=== PATIENT | female | born 1955 | race Caucasian/White ===

== ENCOUNTER 2016-07-07 11:38 | Day surgery (SDC) | payer OTHER ==
[~2016-07-07] VITALS: Ht 165.1 cm; Wt 70.7 kg
[2016-07-07] MEDS ORDERED: OMEPRAZOLE (12:28)
[2016-07-07] MEDS ORDERED: BENAZEPRIL (12:28)
[2016-07-07] MEDS ORDERED: AMLODIPINE (12:28)
[2016-07-07] MEDS ORDERED: SIMVASTATIN (12:28)
[2016-07-07 12:32] VITALS: Ht 165.1 cm; Wt 70.7 kg
[2016-07-07 12:46] VITALS: BP 182/79; PULSE 73; RESP 18
[2016-07-07] MEDS ORDERED: FENTAnyl 50 MCG/ML VIAL ONE (13:57)
[2016-07-07] MEDS ORDERED: MIDAZOLAM 1 MG/ML 2 ML INJ ONE ×3 (13:57)
--- NOTE | 2016-07-07 14:14 | GILP ---
DATE OF PROCEDURE: 07/07/2016 NAME OF PROCEDURES: 1. Esophagogastroduodenoscopy and biopsy. 2. Colonoscopy. SURGEON: Genia Jones MD PREOPERATIVE DIAGNOSES: 1. Abdominal pain. 2. Screening colonoscopy. POSTOPERATIVE DIAGNOSES: 1. Hiatal hernia. 2. Gastroesophageal reflux disease. 3. Gastritis with erosions. 4. Gastric mucosal biopsies were taken for Helicobacter pylori test. 5. Colonoscopy all the way to the cecum. 6. Internal hemorrhoids. 7. No colon neoplasm was identified. INDICATION FOR THE PROCEDURE: Ms. Snehal Euceda is a 61-year-old female patient who had upper abdomin al pain, not responding to therapy. She also needed screening colonoscopy. The procedures and possible complications were well explained to the patient. She understood and co nsented to the procedure. DESCRIPTION OF PROCEDURE: Under the influence of fentanyl and Versed, the gastroscope was carefully introduced into the esophagus, and under direct vision, it was advanced to the stomach and through the pylorus into the duodenal bulb and descending duodenum. FINDINGS: ESOPHAGUS: The patient had small hiatal hernia and gastroesophageal reflux disease. STOMACH: She had gastritis with erosions. Gastric mucosal biopsies were taken for H. pylori test. DUODENUM: Normal. The colonoscope was carefully introduced in the rectum, and under direct vision, it was advanced all the way to the cecum. FINDINGS: The patient had internal hemorrhoids. No colon neoplasm was identified. She tolerated the procedures very well, and there was no complication from the procedures. At the e nd of the procedures, she was awake with stable vital signs, and she was discharged home to the care of her family. IMPRESSION: Please see postoperative diagnosis. PLAN: 1. Omeprazole 40 mg p.o. q. a.m. 2. Zantac 300 mg p.o. at bedtime. 3. Await H. pylori test report. 4. Next screening colonoscopy in 10 years. Dictated By: GENIA WINSTON/THU Conf#: [id number] DID#: [id number]
[2016-07-07 14:15] VITALS: BP 123/81; PULSE 74; RESP 18
== END 2016-07-07 14:42 | disposition home or self-care (01) ==
LOC: GIL 11:38
PROVIDERS: ATTEND Internal Medicine Gastroenterology
DX: Z12.11 Encounter for screening for malignant neoplasm of colon (principal); K44.9 Diaphragmatic hernia without obstruction or gangrene; K29.60 Other gastritis without bleeding; K21.9 Gastro-esophageal reflux disease without esophagitis; K64.8 Other hemorrhoids; I10 Essential (primary) hypertension
CPT/HCPCS: 43239; 45378; 87081; J2250; J3010; Z7610